=== PATIENT | male | born 1960 | race Caucasian/White ===

== ENCOUNTER 2016-10-30 09:32 | Inpatient (IN) | payer OTHER ==
--- NOTE | ~2016-10-30 | CN ---
Consultation Report [facility] [address] [place]. [address] NAME: LUIS SMITH : 60 STATUS : ADM IN PAT#: [id number] AGE: 56 ADM/REG DATE : 10/30/16 MR#: [id number] REPORT SERV DATE: 10/30/16 DICTATED BY: PEPE MENJIVAR DATE: 10/30/16 REPORT STATUS : Draft TRANSCRIBED BY: MODL DATE: 10/30/16 CONSULT NOTE DATE OF CONSULTATION: 10/30/2016 CHIEF COMPLAINT: Shortness of breath in a patient with a hydropneumothorax. HISTORY OF PRESENT ILLNESS: Mr. Luis Smith is a very pleasant, 56-year-old white male with a past medical history significant for recently diagnosed stage IV adenocarcinoma and hypertension, who presented to [facility]'s emergency room with complaints of worsening shortness of breath. It should be noted that Mr. Smith has not been hospitalized recently and is usually in fairly good health. Mr. Smith has recently established with Dr. Tawanna Hodges in [place], [place] for his pulmonary needs. He is on no supplemental oxygen. He takes no pulmonary medications. He has smoked up until two weeks ago. He has smoked upwards of one pack a day for a period of 30 years. He largely denies symptomatology related to his obstructive sleep apnea. The patient describes his exercise tolerance has becoming more restricted as of late, being only able to walk 50 to 100 yards before experiencing some degree of shortness of breath. Mr. Smith states that over the last four to six weeks, he has developed worsening shortness of breath. This eventually prompted a visit to a automotive tire worker to eventually obtain a CT of the chest. That imaging reportedly demonstrated a pulmonary mass as well as a concomitant pleural effusion. He was referred to Dr. Hodges in [place], who ordered an outpatient thoracentesis. The patient reportedly had 2.2 L of "urine colored fluid" evacuated from his chest. Towards the end of the procedure, he did have some significant pleuritic pain. Again by report, this was positive for adenocarcinoma. By his recollection, this fluid was being sent out for specific molecular markers. He was in the process of having an outpatient workup including MRI of the brain and PET scanning. Before he could finish his workup in [place], he began to experience worsening shortness of breath and presented to [facility]'s emergency room. Upon arrival, he was found to have a systolic blood pressure of 200. He was afebrile. He had good oxygen on room air. Initial blood work revealed a white blood cell count of 8400. His creatinine is 1.12. He did have a chest x-ray which demonstrated a right-sided hydropneumothorax. For the aforementioned reasons, he has been referred to the pulmonary service for further assessment. Currently, Mr. Smith does have some mild shortness of breath. This is worse on exertion and relieved by rest. He is not producing any purulent sputum. He has no wheezing in his chest. He denies previous pneumonias or recurrent upper respiratory infections. He does not carry a formal diagnosis of asthma, chronic bronchitis, or emphysema. The patient does have known hypertension. He states that there are worsen signs consistent Consultation Report [address] [place]. [address] NAME: LUIS SMITH : 60 STATUS : ADM IN [facility]#: [id number] AGE: 56 ADM/REG DATE : 10/30/16 MR#: [id number] REPORT SERV DATE: 10/30/16 DICTATED BY: PEPE MENJIVAR DATE: 10/30/16 REPORT STATUS : Draft TRANSCRIBED BY: OPHELIA DATE: 10/30/16 with coronary artery disease on his CT scan. He has never had a heart catheterization. He currently denies any murmurs, angina, or palpitations. He denies any orthopnea or dependent edema. In regard to constitutional symptoms, he currently denies fever, chills, nausea, vomiting, chest pain, abdominal pain, weight loss, or edema. PAST MEDICAL HISTORY: 1. Psoriasis, currently on Enbrel. 2. Hypertension. 3. Recent diagnosis of stage IV adenocarcinoma. PAST SURGICAL HISTORY: Right shoulder repair. FAMILY HISTORY: There is a family history of heart disease. There is no family history of cancer. He denies any known lung disease in the family. SOCIAL HISTORY: The patient is , with his currently at bedside. They have one child who is in good health. 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 TOBACCO/ALCOHOL: As previously mentioned, Mr. Smith quit smoking approximately two weeks ago after his recent diagnosis of lung cancer. He has smoked upwards of one pack a day for a period of 30 years. He denies any recent alcohol or illicit drug use. MEDICATIONS: Acetaminophen 325 mg, Xanax 0.25 mg, Edarbi 80 mg, bupropion 150 mg, doxycycline 100 mg, Enbrel, and Bystolic 10 mg. ALLERGIES: THE PATIENT HAS NO KNOWN DRUG ALLERGIES. REVIEW OF SYSTEMS: A complete review of systems was performed with the pertinent positives and negatives contained within the body of the HPI. PHYSICAL EXAMINATION: VITAL SIGNS: Blood pressure is 159/84, heart rate is 81, T-max is 98.5, respiratory rate is 16, SpO2 is 95% on 2 L nasal cannula. GENERAL: The patient is a pleasant, well-nourished/well-developed male who is not currently exhibiting any signs of acute distress. SKIN: Skin with appropriate texture and turgor. No rashes, lesions, or ulcers. Nails are clear without cyanosis or clubbing. HEENT: Head: Skull is normocephalic/atraumatic. Facies symmetric. No masses or lesions. Eyes: Sclera anicteric, conjunctiva pink without exudates. Extraocular movements intact. Pupils are equal, round, and reactive to light. Ears: Auricles and tragus without pain to palpation. Hearing is grossly intact. Nose: Bilateral nasal patency. Sinuses without Consultation Report [address] [address] NAME: LUIS SMITH : 60 STATUS : ADM IN [facility]#: [id number] AGE: 56 ADM/REG DATE : 10/30/16 MR#: [id number] REPORT SERV DATE: 10/30/16 DICTATED BY: PEPE MENJIVAR DATE: 10/30/16 REPORT STATUS : Draft TRANSCRIBED BY: MODL DATE: 10/30/16 tenderness upon palpation. Throat: Dentition in good repair. Lips, oral mucosa, tongue, palate, and pharynx pink and moist without lesions. Uvula rises equally on phonation. Tongue midline without deviation. NECK: Neck supple. Trachea midline. No cervical lymphadenopathy appreciated. THORAX/LUNGS: Diminished breath sounds in the right lower lung field. Thorax is symmetric with equal chest rise. No rales, wheezes, or rhonchi. CARDIOVASCULAR: Regular rate and rhythm. No murmurs, rubs, or gallops. Anterior chest without thrills, heaves, or lifts. ABDOMEN: Soft. Non-distended, non-tender. Active bowel sounds in all four quadrants. No hepatosplenomegaly noted. PERIPHERAL/VASCULAR: No edema. No varicosities, stasis changes, open sores, ulcerations, or phlebitis. 2+ pulses in radial and dorsalis pedis. MUSCULOSKELETAL: Full AROM and PROM in all joints. No evidence of erythema, deformity, or crepitus. NEUROLOGIC: CN 2-12 grossly intact. Good muscle bulk and tone bilaterally. Strength 5/5 throughout. PSYCHIATRIC: Patient demonstrates good judgment and insight. Patient is A and O x3. ACCESSORY DATA: Reveals a white blood cell count of 8400, hemoglobin and hematocrit 14.8 and 43.0 respectively. Creatinine is 1.12. Chest x-ray reveals a right-sided hydropneumothorax. IMPRESSION: 1. Malignant right pleural effusion. 2. Hydropneumothorax secondary to entrapped lung. 3. Stage IV adenocarcinoma. 4. Clinical chronic obstructive pulmonary disease. 5. Hypertension. PLAN: 1. We did have a discussion with the patient regarding repeat thoracentesis versus chest tube therapy with possible lytic therapy and even an indwelling PleurX catheter. After much discussion, the patient would like to move forward with placement of a PleurX catheter. We will ask for previous imaging studies to be imported into our PAC system as well as Pathology reports and any molecular testing that may have occurred. 2. Oncology is requested to see the patient as they would like to transition to either care closer at home here in [place]. The aforementioned impression and plan has been discussed with Dr. Doshi, who will follow further recommendations. We thank you for this consult and look forward to participating in the care of Mr. Luis Smith. Consultation Report [address] [place]. [address] NAME: LUIS SMITH : 60 STATUS : ADM IN [facility]#: [id number] AGE: 56 ADM/REG DATE : 10/30/16 MR#: [id number] REPORT SERV DATE: 10/30/16 DICTATED BY: PEPE MENJIVAR DATE: 10/30/16 REPORT STATUS : Draft TRANSCRIBED BY: MODL DATE: 10/30/16 GBS/MODL Pepe Menjivar PA-C / [id number] CC: Demetrio Polk M.D.
--- NOTE | ~2016-10-30 | EGD ---
EGD REPORT [facility] [address] [address] NAME: LUIS SMITH : 60 STATUS : ADM IN PAT#: [id number] AGE: 56 ADM/REG DATE : 10/30/16 MR#: [id number] REPORT SERV DATE: 10/31/16 DICTATED BY: LUIGI HERNÁNDEZ DATE: 10/31/16 REPORT STATUS : Draft [facility]ANSCRIBED BY: [facility] DATE: 10/31/16 Pulmonology Patient Name: Luis Smith Procedure Date: 10/31/2016 3:51 PM Date of : 1960 Attending MD: MILDRED HERNÁNDEZ MD Procedure Date No Time: 10/31/2016 Procedure: Indwelling Tunnelled Cuffed Pleural Catheter Placement Indications: Malignant pleural effusion Providers: MILDRED HERNÁNDEZ MD Referring MD: TAE GAN MD Medicines: Intradermal lidocaine 2% with epinephrine 1:100,000 20 mls. See anesthesia record Complications: No immediate complications Procedure: Pre-Anesthesia Assessment: - A History and Physical has been performed. Patient meds and allergies have been reviewed. The risks and benefits of the procedure and the sedation options and risks were discussed with the patient. All questions were answered and informed consent was obtained. Patient identification and proposed procedure were verified prior to the procedure by the physician and the nurse in the pre-procedure area in the procedure room. Mental Status Examination: alert and oriented. Airway Examination: normal oropharyngeal airway. Respiratory Examination: decreased breathe sounds at right base, but otherwise clear. CV Examination: normal and RRR, no murmurs, no S3 or S4. ASA Grade Assessment: III - A patient with severe systemic disease. After reviewing the risks and benefits, the patient was deemed in satisfactory condition to undergo the procedure. The anesthesia plan was to use monitored anesthesia care (MAC). Immediately prior to administration of medications, the patient was re-assessed for adequacy to receive sedatives. The heart rate, respiratory rate, oxygen saturations, blood pressure, adequacy of pulmonary ventilation, and response to care were monitored throughout the procedure. The physical status of the patient was re-assessed after the procedure. After consent was obtained, The procedure was accomplished without difficulty. The patient tolerated the procedure well. Findings: After consent was obtained, a time out was performed. The patient was placed in the left lateral decubitus position with the ipsilateral arm EGD REPORT [address] [address] NAME: LUIS SMITH : 60 STATUS : ADM IN PAT#: [id number] AGE: 56 ADM/REG DATE : 10/30/16 MR#: [id number] REPORT SERV DATE: 10/31/16 DICTATED BY: LUIGI HERNÁNDEZ DATE: 10/31/16 REPORT STATUS : Draft TRANSCRIBED BY: [employer] DATE: 10/31/16 above the patient's head. The patient was sedated by anesthesia and ultrasound survey was performed with identification of pleural fluid and surrounding structures including the diaphragm and lung tissue. Ultrasound image interpretation: The depth to the chest wall is approximately 2 cms. Barcode sign. Ultrasound images were permanently documented. The site of entry was marked using ultrasound guidance. After donning cap, mask, sterile gown and gloves, the patient was prepped with chlorhexadine and drapped. 10 ccs of 2% lidocaine with epinephrine 1:100,000 was used to numb the region. A finder needle was then used to locate fluid with aspiration of air. An angiocath sheath was inserted followed by guidewire placement. A small incision was performed at insertion site of the guide wire to expose the subcutaneous tissue. Then an additional 20 ccs of 2% lidocaine with epinephrine was used to numb the subcutanous tract and second incision site. A similar second incision was made approximately 5 cm below the initial incision. The pleural catheter was tunnelled in the usual manner. The trocar was inserted over the wire and the pleural catheter placed into pleural space. 650 ccs of serous fluid was drained. The catheter was secured using 3.0 silk and a tegaderm dressing was applied. Impression: Right pleurX catheter 650 ccs of serous fluid was drained. Recommendation: 1. Post-procedure stat portable chest x-ray 2. Home health consultation 3. Case management consultation for discharge planning 4. [facility] Lung nurse navigator consultation 5. Follow up with me in 10 to 14 days to remove stitches and inspect site Attending Participation: I personally performed the entire procedure. MILDRED HERNNÁDEZ MD 10/31/2016 3:58 PM This report has been signed electronically. Number of Addenda: 0 Note Initiated On: 10/31/2016 3:51 PM [address] [address]
--- NOTE | ~2016-10-30 | CN ---
Consultation Report [facility] [address] [place]. [address] NAME: LUIS SMITH : 60 STATUS : DIS IN PAT#: [id number] AGE: 56 ADM/REG DATE : 10/30/16 MR#: [id number] REPORT SERV DATE: 11/03/16 DICTATED BY: EMMETT ANDINO DATE: 11/01/16 REPORT STATUS : Draft TRANSCRIBED BY: MODGraciela DATE: 11/01/16 CONSULTATION DATE OF CONSULTATION: 10/31/2016 REASON FOR CONSULTATION: Stage IV [id number] lung cancer. HISTORY OF PRESENT ILLNESS: Mr. Smith is a 56-year-old gentleman with a [id number] smoking history. He previously lived in [place], recently moved to [place] within the last two years. He became increasingly short of breath, was seen by his primary care in [place], who referred then to a e commerce specialist, who found a large right-sided pleural effusion. On 10/23/2016, he underwent a thoracentesis, this showed an adenocarcinoma. He had a small pneumothorax in the right base, went home, doing fairly well, but became increasingly short of breath, showed at the [facility] Emergency Room, found to have a large recurrent pleural effusion. PAST MEDICAL HISTORY: 1. Hypertension. 2. Psoriatic arthritis, with a treatment with Enbrel for 11 years. PAST SURGICAL HISTORY: PleurX catheter placement, 10/31/2016. Right shoulder repair and knee surgery in the past. ALLERGIES: NONE KNOWN. 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 He denies any alcohol intake. He smoked for 35-pack years, has now quit. FAMILY HISTORY: No family history of lung cancer is known. REVIEW OF SYSTEMS: A 12-point review of systems otherwise negative except for the dyspnea. PHYSICAL EXAMINATION: VITAL SIGNS: Temperature 97.8, heart rate of 79, BP 163/98, satting 97% on room air. GENERAL: He is alert, well-appearing male in no apparent distress. HEENT: Pupils are equal, round, reactive. Extraocular movements are intact. There are no oral lesions. No cervical adenopathy. LUNGS: Decreased breath sounds at the right base. CARDIAC: Regular rate and rhythm. Normal S1, S2. ABDOMEN: Soft, nontender, nondistended. EXTREMITIES: No clubbing. No cyanosis. No edema. NEUROLOGIC: Cranial nerves intact. Strength intact. Consultation Report [facility] [place] [place]. [address] NAME: LUIS SMITH : 60 STATUS : DIS IN PAT#: [id number] AGE: 56 ADM/REG DATE : 10/30/16 MR#: [id number] REPORT SERV DATE: 11/03/16 DICTATED BY: EMMETT ANDINO DATE: 11/01/16 REPORT STATUS : Draft TRANSCRIBED BY: OPHELIA DATE: 11/01/16 DIAGNOSTIC STUDIES: CT scan was not available. Chest x-ray was reviewed. Labs were otherwise normal. We were able to get with an outside hospital, the chest x-ray and CT of the abdomen from June. There is a small effusion on the right, but could have been reactive at that time. ASSESSMENT AND PLAN: Luis Smith is a relatively healthy gentleman in his 50s with psoriatic arthritis and a newly diagnosed stage IV non-small cell lung cancer adenocarcinoma. We discussed the need for genetic testing including next generation sequencing and I have ordered this. He will also need PD-L1 testing. Discussed with the patient, the most recent data suggests combined carboplatin, Imitrex, and pembrolizumab provided superior benefit over chemotherapy alone. There is also data showing PD-L1 greater than 50% do better with immunotherapy compared to chemotherapy alone. I am going to get his PD-L1 and his next generation sequencing testing back to determine whether we should proceed with chemotherapy, immunotherapy, or targeted therapy. Pleural effusion. Dr. Sharpe is helping manage the pleural effusion with a PleurX. I am hoping that once the therapy starts, he will be able to have this removed. PROGNOSIS: We discussed that this is not a curable disease. We are hoping that with aggressive treatment, we can improve his outcome. DBD/OPHELIA Emmett Andino M.D. / [id number] CC: Mario Alvarado II, MD
--- NOTE | ~2016-10-30 | DS ---
Discharge Summary [facility] [address] [place]. [address] NAME: RAYMUNDO SMITH : 60 STATUS : ADM IN [facility]#: [id number] AGE: 56 ADM/REG DATE : 10/30/16 MR#: [id number] REPORT SERV DATE: 10/31/16 DICTATED BY: HERMILO GRIFFIN II DATE: 10/31/16 REPORT STATUS : Draft TRANSCRIBED BY: MODGraciela DATE: 10/31/16 ADMISSION DATE: 10/30/2016 DISCHARGE DATE: 10/31/2016 DISCHARGE DIAGNOSES: 1. Right malignant hydropneumothorax, status post PleurX placement. 2. Metastatic lung adenocarcinoma. 3. Hypertension. 4. History of psoriatic arthritis. CONSULTS: Dr. Sharpe with Pulmonary and Dr. Andino with [facility]. PROCEDURES: PleurX cath placement with 650 mL fluid drained. BRIEF HISTORY OF PRESENT ILLNESS: The patient is a 56-year-old male with the above history who presented to [facility] due to shortness of breath and found to have recurrent malignant effusion. For detailed history and physical examination, please see Luiz Garcia's note from 10/30/2016. HOSPITAL COURSE: After admission, Pulmonary was consulted as his chest x-ray showed a large right hydropneumothorax. He was subsequently taken for PleurX cath placement, 650 mL was drained off. He was person needing oxygen, though no longer needing oxygen at the current point in time. Otherwise, the patient is doing well and we will follow with Dr. Andino in clinic for outpatient PET and MRI for further staging workup. DISCHARGE MEDICATIONS: 1. Losartan 80 mg p.o. daily. 2. Wellbutrin 150 mg p.o. b.i.d. 3. Bystolic 10 mg p.o. daily. 4. Anoro Ellipta one inhaled daily. 5. Xanax 0.25 mg p.o. b.i.d. p.r.n. anxiety. 6. Enbrel 25 mcg subcu, Sunday and Sunday. 7. Dovonex cream p.r.n. 8. Tylenol 650 mg p.o. p.r.n. 9. Percocet 5/325 mg p.o. q.6 p.r.n. pain. DISCHARGE INSTRUCTIONS: The patient will follow with Dr. Emmett Andino after completing PET and MRI in the next one to two weeks. Otherwise, he will follow with Dr. Sharpe in 10-14 days for stitches removal. HAYDEN/OPHELIA Hermilo Griffin II, MD Discharge Summary [address] [address] NAME: RAYMUNDO SMITH : 60 STATUS : ADM IN PAT#: [id number] AGE: 56 ADM/REG DATE : 10/30/16 MR#: [id number] REPORT SERV DATE: 10/31/16 DICTATED BY: HERMILO GRIFFIN II DATE: 10/31/16 REPORT STATUS : Draft TRANSCRIBED BY: OPHELIA DATE: 10/31/16 / [id number] CC: Hermilo Griffin II, MD
--- NOTE | ~2016-10-30 | HP ---
History And Physical [place] [id number] [facility] [place]. [address] NAME: RAYMUNDO SMITH : 60 STATUS : ADM IN [facility]#: [id number] AGE: 56 ADM/REG DATE : 10/30/16 MR#: [id number] REPORT SERV DATE: 10/30/16 DICTATED BY: BLANKA WALTERS DATE: 10/30/16 REPORT STATUS : Draft TRANSCRIBED BY: MODGraciela DATE: 10/30/16 DATE OF ADMISSION: 10/30/2016 HISTORY OF PRESENT ILLNESS: This is a pleasant, 56-year-old white male, who states that he began to have shortness of breath symptoms in June of this year that progressively got worse. He saw his primary care, Dr. Dirk Strong who is in [place], [place], who referred him to a detective chief. Initially, he had a workup there, which seemed to show a lung mass and he was referred to a data center architect, where he has had a workup as well in [place] and the data center architect's name is Dr. Hodges, again in [place]. He had an appointment last Sunday, on 10/23/2016, where a thoracentesis was performed and biopsy. Cancer was confirmed of adenocarcinoma on fluid studies and in discussion with his data center architect, Dr. Hodges in [place], he had a small pneumothorax in the right base post thoracentesis, but after this, he was sent home, where he was "doing reasonably well," but this morning early a.m., he began to have significant shortness of breath symptoms, some mild chest pressure, became extremely anxious. So then, presented to [facility] Room for further evaluation. He denies any other symptoms of fever, headache, dizziness, significant coughing, nausea, vomiting, or abdominal pain. He has been eating well up until his symptoms of shortness of breath began this morning. PAST MEDICAL HISTORY: Includes hypertension; cirrhotic arthritis, for which he has been on Enbrel for approximately 11 years. ALLERGIES: DENIES ANY ALLERGIES TO FOOD OR DRUGS. SURGICAL HISTORY: Includes right shoulder repair in the past, knee surgery in the past, and this thoracentesis performed on 10/23/2016. SOCIAL HISTORY: He works for a [employer]. Denies any alcohol intake. He has smoked cigarettes for 35 years one pack a day. FAMILY HISTORY: Mother, family history is unknown. Father with coronary disease, stenting, and a grandpa with coronary disease. REVIEW OF SYSTEMS: Negative except for the pertinents mentioned in the HPI. LAB WORK: Shows sodium 139, potassium 4.3, BUN of 14, creatinine 1.12. White blood cells of 8.4, hemoglobin 14.8, hematocrit 43.0, and platelets of 291. PHYSICAL EXAMINATION: VITAL SIGNS: He is 97% on room air. Pulse rate is 79. Blood pressure 163/93. Respirations of 18. GENERAL: He is alert and oriented x3. No focal deficits. Cooperative and awake. No acute distress for this exam. NECK: No appreciable lymphadenopathy is palpated. LUNGS: Diminished in the right base. Normal respiratory effort however. History And Physical [address] [address] NAME: RAYMUNDO SMITH : 60 STATUS : ADM IN [facility]#: [id number] AGE: 56 ADM/REG DATE : 10/30/16 MR#: [id number] REPORT SERV DATE: 10/30/16 DICTATED BY: BLANKA WALTERS DATE: 10/30/16 REPORT STATUS : Draft TRANSCRIBED BY: OPHELIA DATE: 10/30/16 CARDIAC: Sinus rhythm. No murmurs, rubs, or gallops are appreciated. ABDOMEN: Soft, nontender with active bowel sounds. No appreciable organomegaly. EXTREMITIES: No edema in lower extremities. Normal distal pulses. HEENT: PERRLA is noted. Sclerae clear. Otherwise, skin is warm and dry. NEURO: Cranial nerves as stated are all intact. IMAGING: Personally, I reviewed chest x-ray from 10/23/2016 in comparison with chest x-ray here today, pneumothorax on the right lung is approximately the same size. ASSESSMENT: 1. Shortness of breath. 2. Right lung pneumothorax, pleural effusion as well per his chest x-ray. 3. Recent thoracentesis. 4. Lung cancer adenocarcinoma. 5. Hypertension. 6. History of psoriatic arthritis. PLAN: We will place the patient on 2 L of oxygen to help with resolution of pneumothorax. We will consult Interventional Radiology for placement of a pigtail chest tube. We will consult Pulmonology to follow for resolution. We will also consult [facility] as the patient has requested Dr. Emmett Andino, and wants to establish with followup and treatment here in [place] now and not keep returning to [place]. Lab work has been ordered and followup chest x-ray has been ordered as well. I have updated the patient and the patient's at bedside, and they are both in agreement with this plan going forward. CLAYTON/OPHELIA Blanka Walters NP / [id number] CC: Demetrio Polk M.D.
[2016-10-30 10:14] LABS: BASOPHILS 0.1 %; BASOPHILS ABSOLUTE 0.01 10/3/uL (0.0-0.16); EOSINOPHILS 2.3 %; EOSINOPHILS ABSOLUTE 0.19 10/3/uL (0.0-0.53); ER CBC TAT 0 Hrs 05 Mins; HEMOGLOBIN 14.8 g/dL (13.6-17.8); IMMATURE GRANULOCYTES 0.2 %; IMMATURE GRANULOCYTES ABSOLUTE 0.02 10/3/uL (0.0-0.11); LYMPHOCYTES 22.9 %; LYMPHOCYTES ABSOLUTE 1.92 10/3/uL (0.67-4.30); MANUAL DIFF NO %; MEAN CORPUS HGB CONC 34.4 g/dL (32.0-36.0); MEAN CORPUSCULAR HEMOGLOB 32.3 pg (26.0-34.0); MEAN CORPUSCULAR VOLUME 93.9 fL (80-100); MEAN PLATELET VOLUME 10.8 fL (9.2-13.0); MONOCYTES 8.8 %; MONOCYTES ABSOLUTE 0.74 10/3/uL (0.21-1.20); NEUTROPHILS 65.7 %; NEUTROPHILS ABSOLUTE 5.52 10/3/uL (2.02-8.40); PLATELET COUNT 291 10/3/uL (150-400); RBC DISTRIBUTION WIDTH 12.2 % (12.0-16.0); RED CELL COUNT 4.58 10/6/uL (4.7-6.1); WHITE BLOOD CELLS 8.4 10/3/uL (4.5-10.5)
[2016-10-30 10:28] LABS: BUN (BLOOD UREA NITROGEN) 14 MG/DL (6-23); CHLORIDE, SERUM 108 MMOL/L (96-112); CO2 (CARBON DIOXIDE) 25 MMOL/L (24-34); CREATININE 1.12 MG/DL (0.70-1.30); GFR AFRICAN AMERICAN 85 ML/MIN (>=60); GFR NON AFRICAN AMERICAN 73 ML/MIN (>=60); GLUCOSE, SERUM 118 MG/DL (60-99); POTASSIUM, SERUM 4.3 MMOL/L (3.5-5.3); SODIUM, SERUM 139 MMOL/L (135-148)
[2016-10-30 10:29] LABS: CALCIUM, SERUM 9.6 MG/DL (8.5-10.4)
[2016-10-30] MEDS ORDERED: WELLSR150 PO (11:22)
[2016-10-30] MEDS ORDERED: MONODOX100 MG PO (11:22)
[2016-10-30] MEDS ORDERED: EDARBI80 MG PO (11:22)
[2016-10-30] MEDS ORDERED: BYSTOLIC10 MG PO (11:22)
[2016-10-30] MEDS ORDERED: ENBREL25 MG SC (11:23)
[2016-10-30] MEDS ORDERED: X25 PO (11:23)
[2016-10-30] MEDS ORDERED: DOVONCR60 TOP (11:59)
[2016-10-30] MEDS ORDERED: T PO (12:01)
[2016-10-30] MEDS ORDERED: ANOROELLIPTA INH (12:03)
[2016-10-30 14:39] LABS: ULTRASENSITIVE TSH 0.774 MCIU/ML (0.358-3.740)
[2016-10-30 21:48] LABS: T PROTEIN (ELECT)(NOT OR 6.7 G/DL (6.0-8.5)
[2016-10-31 06:14] LABS: BASOPHILS 0.1 %; BASOPHILS ABSOLUTE 0.01 10/3/uL (0.0-0.16); EOSINOPHILS 0.3 %; EOSINOPHILS ABSOLUTE 0.05 10/3/uL (0.0-0.53); HEMATOCRIT 39.8 % (40.0-51.0); HEMOGLOBIN 13.5 g/dL (13.6-17.8); IMMATURE GRANULOCYTES 0.4 %; IMMATURE GRANULOCYTES ABSOLUTE 0.06 10/3/uL (0.0-0.11); INTERNATIONAL NORMAL RATI 1.1 UNITS (-); LYMPHOCYTES 17.6 %; LYMPHOCYTES ABSOLUTE 2.62 10/3/uL (0.67-4.30); MEAN CORPUS HGB CONC 33.9 g/dL (32.0-36.0); MEAN CORPUSCULAR VOLUME 94.3 fL (80-100); MEAN PLATELET VOLUME 10.7 fL (9.2-13.0); MONOCYTES 9.1 %; MONOCYTES ABSOLUTE 1.35 10/3/uL (0.21-1.20); NEUTROPHILS 72.5 %; NEUTROPHILS ABSOLUTE 10.78 10/3/uL (2.02-8.40); PLATELET COUNT 284 10/3/uL (150-400); PROTIME (NOT ORD) 14.1 SEC (12.0-14.5); RBC DISTRIBUTION WIDTH 12.4 % (12.0-16.0); RED CELL COUNT 4.22 10/6/uL (4.7-6.1)
[2016-10-31 06:16] LABS: WHITE BLOOD CELLS 14.9 10/3/uL (4.5-10.5)
[2016-10-31 06:17] LABS: MANUAL DIFF NO %
[2016-10-31 06:25] LABS: A/G RATIO 0.7 (0.7-1.9); ALKALINE PHOSPHATASE 70 U/L (45-117); BUN (BLOOD UREA NITROGEN) 14 MG/DL (6-23); CALCIUM, SERUM 9.4 MG/DL (8.5-10.4); CHLORIDE, SERUM 109 MMOL/L (96-112); CO2 (CARBON DIOXIDE) 24 MMOL/L (24-34); GFR AFRICAN AMERICAN 110 ML/MIN (>=60); GFR NON AFRICAN AMERICAN 95 ML/MIN (>=60); GLOBULIN 3.9 G/DL (2.5-4.1); GLUCOSE, SERUM 105 MG/DL (60-99); SGOT(AST) 13 U/L (5-40); SGPT(ALT) 15 U/L (5-65); SODIUM, SERUM 141 MMOL/L (135-148); TOTAL BILIRUBIN 0.2 MG/DL (0-1.2); TOTAL PROTEIN 6.8 G/DL (6.0-8.5)
[2016-10-31 06:26] LABS: ALBUMIN 2.9 G/DL (3.5-5.0)
[2016-10-31 10:21] LABS: A/G 1.18 RATIO (0.9-2.10); ALB RELATIVE % 54.2 % (60.0-89.0); ALBUMIN (ELECTRO) 3.63 GM/DL (3.2-5.5); ALPHA 1 (ELECTRO) 0.31 GM/DL (0.1-0.4); ALPHA 1 RELAT % (NOT ORD) 4.7 % (1.0-4.0); ALPHA 2 (ELECTRO) 0.97 GM/DL (0.5-1.10); ALPHA 2 RELAT % 14.5 % (4.5-26.0); BETA RELATIVE % 13.4 % (9.0-22.0); GAMMA GLOBULIN (SPE) 0.88 G/DL (0.70-1.60); GAMMA RELAT % 13.2 % (6.0-22.0)
[2016-10-31 16:33] LABS: INSTRUMENT SERIAL # 35151; pH 7.48 (7.37-7.43)
[2016-10-31 16:34] LABS: OPERATOR ID 35784; SAMPLE Arterial
[2016-10-31 17:02] LABS: GLUCOSE BODY FL (NOT ORD) 83 MG/DL; LDH BODY FLUID (NOT ORD) 345 U/L; PROTEIN BODY FLUID 4.7 G/DL
[2016-10-31 17:12] LABS: BF TOTAL CELL CT (NOT ORD 1265 /MM3; BODY FLUID RBC (NOT ORD) 5558 /MM3
[2016-10-31 17:14] LABS: BD FL LYMPH (NOT ORD) 41 %; BF BASO (NOT OF) 0 %; BF LARGE MONONUCLEAR 38 %; BODY FLUID EOS (NOT ORD) 17 %; BODY FLUID SEG (NOT ORD) 4 %
[2016-10-31 17:15] LABS: BD FL SOURCE (NOT ORD) RT PLEURAL
[2016-10-31] MEDS ORDERED: PCET PO (18:10)
[2016-10-31] MEDS ORDERED: SPIRIVA RESPIMAT INH (18:10)
[2016-11-01 06:51] LABS: BD FL SOURCE (NOT ORD) RIGHT PLEURAL FLUID
[2016-12-28] MEDS ORDERED: T PO (11:26)
[2016-12-28] MEDS ORDERED: EDARBI80 MG PO (11:27)
[2016-12-28] MEDS ORDERED: X25 PO (11:27)
[2016-12-28] MEDS ORDERED: WELLSR150 PO (11:27)
[2016-12-28] MEDS ORDERED: DIL2TAB PO (11:28)
[2016-12-28] MEDS ORDERED: DOVONCR60 TOP (11:28)
[2016-12-28] MEDS ORDERED: BYSTOLIC10 MG PO (11:28)
[2016-12-28] MEDS ORDERED: LEVAQUIN750 MG PO (11:29)
[2016-12-28] MEDS ORDERED: OXYCOD PO (11:29)
[2016-12-28] MEDS ORDERED: FLAG500TAB PO (11:29)
[2016-12-28] MEDS ORDERED: MAGIC MOUTHWASH PO (11:30)
[2016-12-28] MEDS ORDERED: LIDOCAINE VISCOUS PO (11:30)
[2016-12-28] MEDS ORDERED: ZOFRAN8 PO (11:31)
[2016-12-28] MEDS ORDERED: FOLIC ACID400 MC1 PO (11:31)
[2016-12-28] MEDS ORDERED: DEX4 PO (11:31)
[2016-12-28] MEDS ORDERED: SPIRIVA RESPIMAT INH (11:31)
[2016-12-28] MEDS ORDERED: CHEMOTHERAPY IV (11:32)
[2016-12-28] MEDS ORDERED: B121000P IM (11:49)
[2016-12-28] MEDS ORDERED: MIRALAX POWDER1 PKT PO (16:38)
== END 2016-10-31 18:50 | disposition home or self-care (01) | DRG 181 ==
LOC: ER 09:32 → 4EA 12:30
PROVIDERS: Emergency Medicine; Internal Medicine
PROC: 0W9900Z Drainage of Right Pleural Cavity with Drainage Device, Open Approach (ICD-10-PCS; principal; 2016-10-31 15:05)
DX: C34.90 Malignant neoplasm of unspecified part of unspecified bronchus or lung (principal); S27.301A Unspecified injury of lung, unilateral, initial encounter; J91.0 Malignant pleural effusion; I10 Essential (primary) hypertension; J44.9 Chronic obstructive pulmonary disease, unspecified
CPT/HCPCS: 32557; 71010; 71020; 80048; 80053; 82805; 82945; 83615; 83986; 84155; 84157; 84165; 84443; 85025; 85379; 85610; 87015; 87070; 87102; 87116; 87205; 88112; 88305; 88341; 88342; 89051; 93005; 96374; 99285; A9270-GY; C1729; J2930

== ENCOUNTER 2017-02-26 07:54 | Day surgery (SDC) | payer OTHER ==
[~2017-02-26] VITALS: Ht 172.7 cm; Wt 81.6 kg
--- NOTE | ~2017-02-26 | EGD ---
EGD REPORT [facility] [address] [address] NAME: LUIS SMITH : 60 STATUS : REG [facility]#: [id number] AGE: 56 ADM/REG DATE : 02/26/17 MR#: [id number] REPORT SERV DATE: 02/26/17 DICTATED BY: LUIGI HERNÁNDEZ DATE: 02/26/17 REPORT STATUS : Draft TRANSCRIBED BY: [facility] DATE: 02/26/17 Pulmonology Patient Name: Luis Smith Procedure Date: 02/26/2017 1:55 PM Date of : 1960 Attending MD: MILDRED HERNÁNDEZ MD Procedure Date No Time: 02/26/2017 Procedure: Pleurx Catheter Removal Indications: Right malignant pleural effusion s/p autopleurodesis Providers: MILDRED HERNÁNDEZ MD Referring MD: SARAH LEWIS MD Medicines: Intradermal lidocaine 2% with epinephrine 1:100,000 10 mls. See anesthesia record Complications: No immediate complications Procedure: Pre-Anesthesia Assessment: - A History and Physical has been performed. Patient meds and allergies have been reviewed. The risks and benefits of the procedure and the sedation options and risks were discussed with the patient. All questions were answered and informed consent was obtained. Patient identification and proposed procedure were verified prior to the procedure by the physician and the nurse in the pre-procedure area in the procedure room. Mental Status Examination: normal. Airway Examination: normal oropharyngeal airway. Respiratory Examination: clear to auscultation. CV Examination: normal and RRR, no murmurs, no S3 or S4. ASA Grade Assessment: III - A patient with severe systemic disease. After reviewing the risks and benefits, the patient was deemed in satisfactory condition to undergo the procedure. The anesthesia plan was to use monitored anesthesia care (MAC). Immediately prior to administration of medications, the patient was re-assessed for adequacy to receive sedatives. The heart rate, respiratory rate, oxygen saturations, blood pressure, adequacy of pulmonary ventilation, and response to care were monitored throughout the procedure. The physical status of the patient was re-assessed after the procedure. After consent was obtained, The procedure was accomplished without difficulty. The patient tolerated the procedure well. Findings: After consent was obtained, a time out was performed. The patient was placed in the left lateral decubitus position with the ipsilateral arm above the patient's head. The patient was sedated by anesthesia with EGD REPORT [place] [address] [facility] [place]. [address] NAME: LUIS SMITH : 60 STATUS : REG [facility]#: [id number] AGE: 56 ADM/REG DATE : 02/26/17 MR#: [id number] REPORT SERV DATE: 02/26/17 DICTATED BY: LUIGI HERNÁNDEZ DATE: 02/26/17 REPORT STATUS : Draft TRANSCRIBED BY: [facility] DATE: 02/26/17 conscious sedation. The patient's pleurX site was sterilized with chloraprep. Lidocaine with epinephrine was injected at the exit site. Blunt dissection was performed using Xiomara forceps along the pleurX tract and the indwelling cuff was liberated. The pleurX was easily removed and a gauze and tegaderm dressing was placed over the site. Impression: Right PleurX removal Recommendation: - Await test results. - Chest X-ray post-procedure. Attending Participation: I personally performed the entire procedure. MIDLRED HERNÁNDEZ MD 02/26/2017 1:58 PM This report has been signed electronically. Number of Addenda: 0 Note Initiated On: 02/26/2017 1:55 PM [place] [address]
[~2017-02-26 07:54] MED LIST: ANOROELLIPTA INH; B121000P IM; BYSTOLIC10 MG PO; CHEMOTHERAPY IV; DEX4 PO; DIL2TAB PO; DOVONCR60 TOP; EDARBI80 MG PO; ENBREL25 MG SC; FLAG500TAB PO; FOLIC ACID400 MC1 PO; LEVAQUIN750 MG PO; LIDOCAINE VISCOUS PO; MAGIC MOUTHWASH PO; MIRALAX POWDER1 PKT PO; MONODOX100 MG PO; OXYCOD PO; PCET PO; SPIRIVA RESPIMAT INH; T PO; WELLSR150 PO; X25 PO; ZOFRAN8 PO
[2017-02-26 08:05] LABS: BASOPHILS 0.4 %; BASOPHILS ABSOLUTE 0.03 10/3/uL (0.0-0.16); EOSINOPHILS 5.6 %; EOSINOPHILS ABSOLUTE 0.44 10/3/uL (0.0-0.53); HEMOGLOBIN 13.3 g/dL (13.6-17.8); IMMATURE GRANULOCYTES 0.8 %; IMMATURE GRANULOCYTES ABSOLUTE 0.06 10/3/uL (0.0-0.11); LYMPHOCYTES 25.9 %; LYMPHOCYTES ABSOLUTE 2.05 10/3/uL (0.67-4.30); MEAN CORPUS HGB CONC 33.6 g/dL (32.0-36.0); MEAN CORPUSCULAR HEMOGLOB 32.2 pg (26.0-34.0); MEAN PLATELET VOLUME 10.1 fL (9.2-13.0); MONOCYTES 10.7 %; MONOCYTES ABSOLUTE 0.85 10/3/uL (0.21-1.20); NEUTROPHILS 56.6 %; NEUTROPHILS ABSOLUTE 4.49 10/3/uL (2.02-8.40); PLATELET COUNT 223 10/3/uL (150-400); RBC DISTRIBUTION WIDTH 14.1 % (12.0-16.0); RED CELL COUNT 4.13 10/6/uL (4.7-6.1)
[2017-02-26 08:06] LABS: HEMATOCRIT 39.6 % (40.0-51.0); MANUAL DIFF NO %; MEAN CORPUSCULAR VOLUME 95.9 fL (80-100); WHITE BLOOD CELLS 7.9 10/3/uL (4.5-10.5)
[2017-02-26 08:13] LABS: PROTIME (NOT ORD) 13.4 SEC (12.0-14.5)
== END 2017-02-26 23:59 | disposition home or self-care (01) ==
LOC: DMU 07:54
PROVIDERS: Internal Medicine
PROC: 0WP9X0Z Removal of Drainage Device from Right Pleural Cavity, External Approach (ICD-10-PCS; principal; 2017-02-26 09:30)
DX: C34.91 Malignant neoplasm of unspecified part of right bronchus or lung (principal); J91.0 Malignant pleural effusion; I10 Essential (primary) hypertension; J44.9 Chronic obstructive pulmonary disease, unspecified; F17.210 Nicotine dependence, cigarettes, uncomplicated; K57.92 Diverticulitis of intestine, part unspecified, without perforation or abscess without bleeding; M19.90 Unspecified osteoarthritis, unspecified site; L40.9 Psoriasis, unspecified; Z92.21 Personal history of antineoplastic chemotherapy; Z79.899 Other long term (current) drug therapy; Z98.890 Other specified postprocedural states
CPT/HCPCS: 85025; 85610; 85730